=== PATIENT | female | born 1985 | race Caucasian/White ===

== ENCOUNTER → 2016-08-29 | Outpatient (CLI) | payer OTHER ==
[~2016-08-29] MED LIST: PRENTAB26 PO
[2016-08-29 17:33] LABS: URINE APPEARANCE CLEAR (CLEAR); URINE BILIRUBIN NEG (NEG); URINE COLOR DK YELLOW; URINE NITRITE NEG (NEG); URINE PH 5.5 (4.5-7.5); URINE SPECIFIC GRAVITY 1.024 (1.000-1.030); UROBILINOGEN NEG (NEG)
[2016-08-29 17:46] LABS: MANUAL MICROSCOPIC REQUIRED? NO; REVIEW REQ? NO
== END | disposition home or self-care (01) ==
LOC: C.LABSPEC 16:58
PROVIDERS: ATTEND Obstetrics & Gynecology
DX: Z34.81 Encounter for supervision of other normal pregnancy, first trimester (principal)

== ENCOUNTER → 2016-09-05 | Outpatient (CLI) | payer OTHER ==
[2016-09-05 15:40] LABS: BASO % 0.3 %; BASO ABS # 0.03 K/uL (0-0.2); COMPLETE YES; EOS % 0.6 %; HEMATOCRIT 36.3 % (37-47); IG% 0.2 %; LYMPH % 30.2 %; LYMPH ABS # 3.11 K/uL (1.2-3.4); MEAN CELL VOLUME 78.4 fL (80-100); MEAN CORPUSCULAR HEMOGLOBIN 26.1 pg (25-34); MEAN CORPUSCULAR HGB CONC 33.3 g/dl (32-36); MEAN PLATELET VOLUME 9.8 fL (7.4-10.4); MONO % 6.5 %; NEUT % 62.2 %; PLATELET COUNT 341 K/uL (130-400); RED BLOOD COUNT 4.63 M/uL (4.2-5.4); WHITE BLOOD COUNT 10.29 K/uL (4.8-10.8)
== END | disposition home or self-care (01) ==
LOC: C.LAB1850 14:36
PROVIDERS: ATTEND Obstetrics & Gynecology
DX: Z34.81 Encounter for supervision of other normal pregnancy, first trimester (principal)

== ENCOUNTER → 2016-09-05 | Outpatient (CLI) | payer OTHER ==
[2016-09-09 12:10] LABS: CHLAMYDIA TRACH RNA*** NOT DETECTED (NOT DETECTED); GC (NEIS GONORRHOEAE)RNA** NOT DETECTED (NOT DETECTED)
== END | disposition home or self-care (01) ==
LOC: C.LABSPEC 15:48
PROVIDERS: ATTEND Obstetrics & Gynecology
DX: Z34.81 Encounter for supervision of other normal pregnancy, first trimester (principal)

== ENCOUNTER → 2016-10-31 | Outpatient (CLI) | payer OTHER ==
[2016-10-31 17:11] LABS: GTGD 50 Grams
== END | disposition home or self-care (01) ==
LOC: C.LAB1850 15:29
PROVIDERS: ATTEND Obstetrics & Gynecology
DX: Z34.82 Encounter for supervision of other normal pregnancy, second trimester (principal)

== ENCOUNTER → 2017-03-20 | Outpatient (CLI) | payer OTHER | END | disposition home or self-care (01) | LOC: C.LABSPEC 17:20 | PROVIDERS: ATTEND Obstetrics & Gynecology | DX: Z34.83 Encounter for supervision of other normal pregnancy, third trimester (principal) ==

== ENCOUNTER → 2017-04-03 | Outpatient (CLI) | payer OTHER ==
[2017-04-03 13:19] LABS: HEMATOCRIT 36.6 % (37-47); HEMOGLOBIN 12.5 g/dL (12.0-16.0); MEAN CELL VOLUME 76.1 fL (80-100); MEAN CORPUSCULAR HGB CONC 34.2 g/dl (32-36); PLATELET COUNT 273 K/uL (130-400); RED CELL DISTRIBUTION WIDTH SD 41.8 fL (36.4-46.3); WHITE BLOOD COUNT 10.27 K/uL (4.8-10.8)
[2017-04-03 13:49] LABS: ALBUMIN 2.8 gm/dl (3.4-5.0); ALT/SGPT 15 U/L (12-78)
[2017-04-03 13:52] LABS: ALKALINE PHOSPHATASE 111 U/L (45-117); AST/SGOT 13 U/L (15-37); TOTAL PROTEIN 7.3 gm/dl (6.4-8.2)
== END | disposition home or self-care (01) ==
LOC: C.LAB1850 12:16
PROVIDERS: ATTEND Obstetrics & Gynecology
DX: O09.93 Supervision of high risk pregnancy, unspecified, third trimester (principal); Z3A.00 Weeks of gestation of pregnancy not specified

== ENCOUNTER 2017-04-19 06:00 | Inpatient (IN) | payer OTHER ==
[~2017-04-19] VITALS: Ht 160 cm; Wt 108.0 kg
[2017-04-19] MEDS ORDERED: LACTATED RINGER'S 1000ML 1,000 ML IV PRN (06:42)
[2017-04-19] MEDS ORDERED: FENTANYL CITRATE INJ 50 MCG/1 ML 2 ML VIAL ONE (07:13)
[2017-04-19] MEDS ORDERED: EpHEDrine SULFATE INJ 50 MG/ML AMP ONE (07:13)
[2017-04-19] MEDS ORDERED: BUPIVACAINE 0.25% 30 ML VIAL ONE (07:13)
[2017-04-19] MEDS ORDERED: FENTANYL 2MCG/ML ROPIV 1.25MG/ML 100ML BAG EPI ONE (07:14)
[2017-04-19 07:52] VITALS: Ht 160 cm; Wt 108.0 kg
[2017-04-19 07:58] LABS: HEMATOCRIT 35.9 % (37-47); HEMOGLOBIN 12.2 g/dL (12.0-16.0); MEAN CELL VOLUME 76.4 fL (80-100); MEAN PLATELET VOLUME 10.7 fL (7.4-10.4); PLATELET COUNT 204 K/uL (130-400); RED CELL DISTRIBUTION WIDTH CV 15.9 % (11.5-14.5); RED CELL DISTRIBUTION WIDTH SD 43.8 fL (36.4-46.3); WHITE BLOOD COUNT 13.27 K/uL (4.8-10.8)
[2017-04-19] MEDS: LACTATED RINGER'S 1000ML 1,000 ML IV SCH ×2 (08:05→13:10)
[2017-04-19] MEDS ORDERED: LACTATED RINGER'S 1000ML 500 ML IV PRN ×2 (08:53→09:57)
[2017-04-19] MEDS ORDERED: NALOXONE HCL INJ 1 MG in SODIUM CHLORIDE 0.9% 1000ML 1,000 ML IV PRN (08:53)
[2017-04-19] MEDS ORDERED: NALOXONE HCL INJ 0.4 MG/1 ML VIAL/CARP IV PRN (09:00)
[2017-04-19] MEDS ORDERED: EpHEDrine SULFATE INJ 50 MG/ML AMP IV PRN (09:00)
[2017-04-19] MEDS ORDERED: ONDANSETRON INJ 2 MG/ML 2 ML VIAL IV PRN (09:00)
[2017-04-19] MEDS ORDERED: NALBUPHINE HCL INJ 10 MG/ML AMP IV PRN (09:00)
[2017-04-19] MEDS ORDERED: DiphenhydrAMINE HCL 50 MG/ML VIAL IV PRN (09:00)
[2017-04-19] MEDS ORDERED: FENTANYL 2MCG/ML ROPIV 1.25MG/ML 100ML BAG EPI PRN (09:00)
[2017-04-19] MEDS ORDERED: OXYTOCIN 30 UNITS/500ML NSS IV PRN ×2 (10:00→14:45)
[2017-04-19] MEDS ORDERED: SUPERCREAM 0.870 % 15GM JAR EXT PRN (14:45)
[2017-04-19] MEDS ORDERED: ACETAMINOPHEN 325 MG TAB PO PRN (14:45)
[2017-04-19] MEDS ORDERED: LANOLIN OINT EXT PRN (14:45)
[2017-04-19] MEDS ORDERED: HYDROCORTISONE ACETATE 25 MG SUPP PR PRN (14:45)
[2017-04-19] MEDS ORDERED: IBUPROFEN 600 MG TAB PO PRN (14:45)
[2017-04-19] MEDS ORDERED: DIPHTHERIA/TETANUS/PERTUSSIS 0.5 ML SYR/VIAL IM. ONE (14:45)
[2017-04-19] MEDS ORDERED: BENZOCAINE 20% AER SPR 82.5 GM CAN EXT PRN (14:45)
[2017-04-19] MEDS ORDERED: OXYCODONE/ACETAMINOPHEN 5-325 TAB PO PRN (14:45)
--- NOTE | 2017-04-19 15:17 | Anesthesia Procedure Note ---
Anesthesia Epidural Removal Nt Date & Time Apr 19, 2017 at 15:17 Notes Mental Status: alert / awake / arousable, participated in evaluation Nausea / Vomiting: adequately controlled Pain: adequately controlled Airway Patency, RR, SpO2: stable & adequate BP & HR: stable & adequate Hydration State: stable & adequate Neuraxial Anesthesia: was administered Anesthetic Complications: no major complications apparent, pt satisfied with anesthetic care Epidural: removed without complications, with tip intact
[2017-04-19 17:10] VITALS: BP 136/75; PULSE 99; TEMP 37.2
--- NOTE | 2017-04-19 17:51 | DELIVERY SUMMARY ---
DATE OF OPERATION: 04/19/2017 PREOPERATIVE DIAGNOSES: 1. Intrauterine at 41 and 0/7 weeks. 2. Active labor. POSTOPERATIVE DIAGNOSES: Same. PROCEDURES: 1. Epidural anesthesia. 2. Amniotomy for clear fluid. 3. Pitocin augmentation. 4. Normal spontaneous vaginal delivery. 5. First degree vaginal laceration with repair. SURGEON: Becca Soria MD ANESTHESIA: Epidural. ESTIMATED BLOOD LOSS: 300 mL. PROCEDURE: The patient presented to labor and delivery in active labor at 4+ cm. She underwent an epidural anesthesia, once she was comfortable with that, her contractions had paced every 5 to 6 minutes and so amniotomy and Pitocin augmentation was begun. She progressed to complete-complete, +1 station, pushed effectively to deliver a viable male infant in direct occiput posterior presentation, and the rest of the was then quickly delivered. There was no nuchal cord. The nose and mouth were bulb suctioned. The infant was vigorous. The cord was short, so it was clamped and cut on the perineum, and the was placed on maternal abdomen for drying and attention. Cord blood was obtained. Placenta was delivered spontaneously intact with a 3-vessel cord. Cervix, sulci and rectum were examined and found to be intact. Small vaginal laceration at the introitus was repaired with 3-0 Vicryl. Apgars 9 and 9. Mother and baby doing well at the end of the delivery. I attest to the content of the Intraoperative Record and any orders documented therein. Any exception s are noted below.
[2017-04-19] MEDS: DOCUSATE SODIUM 100 MG CAP PO SCH (19:35)
[2017-04-19 20:10] VITALS: BP 143/82; PULSE 103; TEMP 36.8
[2017-04-19 23:40] VITALS: BP 119/79; PULSE 80; TEMP 36.8
[2017-04-20 04:00] VITALS: BP 141/77; PULSE 82; TEMP 36.8
[2017-04-20 06:20] LABS: HEMOGLOBIN 11.1 g/dL (12.0-16.0)
[2017-04-20] MEDS ORDERED: PRENATAL VITAMIN TAB PO SCH (08:00)
[2017-04-20] MEDS: DOCUSATE SODIUM 100 MG CAP PO SCH (08:42)
[2017-04-20 09:05] VITALS: BP 123/71; PULSE 83; TEMP 36.6
--- NOTE | 2017-04-20 09:35 | Progress Note ---
Subjective Apr 20, 2017. Subjective conversation w/ patient, physical exam, lab review Ambulation: ambulating normally Voiding: no voiding problems Diet Tolerance: Regular Diet Lochia: Small Feeding Type: Breast Feeding Pain: controlled with oral pain meds Objective Vital Signs Date Time Temp Pulse Resp B/P (MAP) Pulse Ox O2 Delivery O2 Flow Rate FiO2 04/20/17 04:00 36.8 82 18 141/77 (98) Room Air 04/19/17 23:40 Room Air 04/19/17 23:40 36.8 80 18 119/79 (92) Room Air 04/19/17 20:10 36.8 103 18 143/82 (102) Room Air 04/19/17 17:10 37.2 99 20 136/75 (95) Room Air 04/19/17 17:10 Room Air Physical Exam General Appearance: WELL-APPEARING, WD/WN, NO APPARENT DISTRESS Abdomen: non tender, soft Fundus: Firm, Non-Tender, Relation to Umbilicus (difficult to evaluate secondary to obesity) Extremities: non-tender, + pedal edema (trace) Laboratory Results Last 24 Hours Test 04/20/17 06:00 Hemoglobin 11.1 g/dL Hematocrit 33.0 % Assessment and Plan Post- Day#: 1 Continue Routine Care: Patient doing well and would like to be d/c today. Instructions reviewed.
--- NOTE | 2017-04-20 09:37 | Discharge Instructions ---
Discharge Instructions Date of Service Apr 20, 2017. Admission Reason for Admission: Normal Labor And Delivery Discharge Discharge Diagnosis / Problem: s/p vaginal delivery Discharge Goals Goal(s): Routine recovery after delivery Medications Continue Dispensed Medications: dermaplast, tucks, lansinoh Activity Recommendations Activity Limitations: per Instructions/Follow-up section . Instructions / Follow-Up Instructions / Follow-Up ACTIVITY RECOMMENDATIONS: * Gradual return to full activity over the next 2-3 weeks. * No lifting - nothing heavier than baby over the next 2-3 weeks. * Do not engage in vigorous exercise, sexual activity or sports until cleared by your physician. * Do not drive or operate any motorized equipment until cleared by your physician. * You may shower/bathe daily. MEDICATIONS: For discomfort or pain, you may use Acetaminophen (Tylenol), Ibuprofen (Advil), or Naproxen (Aleve) following the package directions. For constipation you may use Colace following the package directions. BREAST CARE: If you are not breast feeding: * Wear a supportive bra 24 hours a day for one to two weeks. * Avoid stimulating your breasts and nipples as much as possible during the first few weeks after delivery. * When taking a shower, have the warm water hit your back, not breasts. * When your breasts feel full, apply ice packs. Usually three to four times a day helps ease the discomfort. * Take a mild pain medication (Tylenol / Motrin) when you are uncomfortable. If breast feeding: * Use breast milk to lubricate nipples. Lansinoh cream may be used for sore nipples. You do not need to remove cream prior to breast feeding. If using a different brand of cream, check the label for directions regarding removal of cream prior to nursing. * Wear a supportive bra. * If having problems with breasts or breast feeding, call a data management consultant or your health care provider. EPISIOTOMY CARE: After delivery, if you have an episiotomy (stitches), the following steps will ease discomfort and aid healing. * For the first 24 hours after delivery, place ice packs next to your episiotomy to help reduce swelling. * After the first 24 hour-period, sitz baths, either portable or in the tub, are suggested. A shower with a shower arm sprayed over the episiotomy may be comforting. * Susanne care should be done after each voiding and bowel movement. Squirt warm water from a plastic bottle over the perineum (region of the body between the anus and urinary opening) and pat dry. * Use Dermoplast to ease discomfort. Shake container. [place] directly over the episiotomy. Place a Tucks on a clean sanitary pad next to your episiotomy. SPECIAL CARE INSTRUCTIONS: When you are discharged from the hospital, it is important for you to follow the instructions listed below: * During the first week at home, you should be able to care for yourself and your baby. In addition, the usual light household activities are encouraged. * Limit your activities to the way you feel. Do not try to clean the house or move furniture. Be sensible. * If you actively engage in sports and have done so up until the time of your delivery, you may resume these activities as soon as you feel able. This may take up to one month or even longer. Use good judgment. * Continue to take your vitamins for at least six weeks after the of your baby. * Your diet need not be limited unless you were on a special diet before your delivery. Breast-feeding mothers need around 2500 calories per day and at least 64-80 ounces of fluid per day (8 to 10 glasses). * You should eat foods from the four major food groups. Crash diets or fad diets are to be avoided. Eating lean meats, fresh fruits and vegetables, low-fat dairy products, high fiber foods and a regular exercise program, will help you get back to your pre- weight without putting your health at risk. * Constipation is sometimes a problem after delivery. Take a mild laxative as needed. If breast feeding, Milk of Magnesia is acceptable to use. You may use a suppository or Fleets enema if no episiotomy. * A daily shower or tub bath is suggested. Be sure to thoroughly and gently dry the perineum. * A bloody vaginal discharge will usually continue until around four weeks post . A small amount of bleeding may continue for as long as six weeks. Vaginal discharge changes from the bright red bleeding after delivery to pink then brownish and finally yellowish-pink before becoming white and disappearing. * Bleeding may increase with activity. Your first period may come in 4-8 weeks. If you are breast feeding, your period may be delayed even longer. * Nesque[place]oning (sex) can begin whenever both you and your partner feel comfortable and do not have any form of genital infection. It is recommended that you wait at least six weeks for internal and external healing to occur. If you have questions, please talk to your health care practitioner. A condom should be used to prevent infection and . * Foreplay, gentle intercourse and lubrication is very important the first several times to prevent pain. A water-based lubricant such as K-Y jelly or Astroglide may be used. * If you have RH negative blood and your baby is RH positive, you will receive RHOGAM by injection prior to discharge. The nurse will give you a card to keep with you that has the date and place that you received RHOGAM after delivery. * During your care, you had a Rubella screen done to check for the presence of rubella antibodies in your blood. If your test was negative, you will receive a Rubella vaccine prior to discharge. This vaccine may cause a fever, soreness at the injection site and flu-like symptoms. If these symptoms persist, notify your health care practitioner. is not advised for one month after a Rubella vaccine. * Verbalizes understanding of car seat law as reviewed with patient nursing. * Car Seat hand-out given and reviewed with patient by nursing. * Shaken baby information reviewed with patient by nursing. Call you doctor if: * Heavy bleeding (saturating several pads an hour) or passing clots the size of your fist. * A fever >101 degrees F (38.3 degrees C) on two occasions four hours apart and /or chills. * Unusual pain in the pelvic or vaginal areas. * "Baby Blues" lasting longer than two weeks. If you have any questions or concerns, call your health care practitioner at . FOLLOW UP VISIT: * Please call the office at to schedule a 6 week examination. It is important you keep this appointment. It is important for you to make arrangements for either yearly or twice yearly check-ups thereafter. Current Hospital Diet Patient's current hospital diet: Regular OB Diet Discharge Diet Recommended Diet: Regular Diet Pending Studies Studies pending at discharge: no Medical Emergencies . Who to Call and When: Medical Emergencies: If at any time you feel your situation is an emergency, please call 911 immediately. . Non-Emergent Contact Non-Emergency issues call your: Bag Machine Adjuster . . "Provider Documentation" section prepared by Becca Soria. . VTE Core Measure Inpt VTE Proph given/why not?: Treatment not indicated
[2017-04-20 13:10] VITALS: BP 125/76; PULSE 80; TEMP 36.6
[2017-04-20 15:25] VITALS: BP 117/74; PULSE 86; TEMP 36.7
[2017-04-20 16:15] VITALS: BP_DIAS 74; PULSE 86; TEMP 36.7
== END 2017-04-20 16:30 | disposition home or self-care (01) | DRG 775 ==
LOC: C.LD 06:00 → C.OPB 06:00 → C.LD 06:43 → C.OPB 06:47 → C.OBG 17:11
PROVIDERS: ADMIT Obstetrics & Gynecology; ATTEND Obstetrics & Gynecology
PROC: 10E0XZZ Delivery of Products of Conception, External Approach (ICD-10-PCS; principal; 2017-04-19)
PROC: 0HQ9XZZ Repair Perineum Skin, External Approach (ICD-10-PCS; principal; 2017-04-19)
DX: O70.0 First degree perineal laceration during delivery (principal); Z3A.41 41 weeks gestation of pregnancy; Z37.0 Single live birth

== ENCOUNTER → 2017-06-04 | Outpatient (CLI) | payer OTHER | END | disposition home or self-care (01) | LOC: C.PAPS 15:09 | PROVIDERS: ATTEND Obstetrics & Gynecology | DX: Z12.4 Encounter for screening for malignant neoplasm of cervix (principal) ==

== ENCOUNTER 2018-08-26 07:57 | Inpatient (IN) ==
[2018-08-26] MEDS ORDERED: OXYTOCIN 30 UNITS/500 ML BAG IV PRN ×2 (08:33)
[2018-08-26 08:58] LABS: Hematocrit (blood only) 35.1 % (37-47); Hemoglobin 11.9 g/dL (12.0-16.0); Mean Corpuscular Volume 73.4 fL (80-100); Mean Platelet Volume 10.3 fL (7.4-10.4); Platelet Count 244 K/uL (130-400); RDW Coefficient of Variation 15.4 % (11.5-14.5); RDW Standard Deviation 41.8 fL (36.4-46.3); Red Blood Count 4.78 M/uL (4.2-5.4); White Blood Count 9.84 K/uL (4.8-10.8)
[2018-08-26 09:06] LABS: Mean Corpuscular Hgb Conc 33.9 g/dL (32-36)
[2018-08-26] MEDS ORDERED: PENICILLIN G POTASSIUM 6 MU in DEXTROSE 5% 250 ML IV STA (09:15)
--- NOTE | 2018-08-26 09:26 | History & Physical Report ---
Date of Service August 26, 2018 Assessment & Plan (1) 40 weeks gestation of : Danielle is a 33yo who presents at 40+2 for scheduled induction of labor - GBS positive, Blood type O+, RI, VDRL negative - Nicholas balloon fell out at 3am. - Admit for induction of labor. - Oxytocin 2x2 induction protocol - Penicillin 6M U followed by 3MU Q4H for GBS+ protocol. - Plan for epidural. - Routine care. History of Present Illness Chief Complaint: Induction of labor Primary Care Provider: DEMETRIA PCP Danielle is a 33-year-old 3 para 2-0-0-2 who presents at 40+2 weeks gestation for scheduled induction of labor. She is group B strep positive. Blood type O+, rubella immune, VDRL negative. Her prior pregnancies were delivered by normal spontaneous vaginal delivery at 41+ weeks. Her current has been uncomplicated. She has no past medical history of diabetes, hypertension, heart disease, autoimmune disorder, kidney disease, psychiatric disease, hepatic disease. No history of migraines or asthma. She takes a vitamin and Tums. No other medications. She has no known drug allergies Social: Non-smoker, no alcohol use. Lives with spouse, son, and daughter. Today Danielle reports she feels well. She is not having any fever, chills, shortness of breath, difficulty breathing, chest pain, chest pressure, lightheadedness, dizziness, abdominal pain. She reports a small amount of blood in vaginal discharge after her Nicholas balloon fell out last night at approximately 1 AM. Otherwise no vaginal discharge. She has not had a gush of fluid, and is not concerned her water has broken. She is having occasional sporadic contractions, but no regular contractions. No nausea, no vomiting. She would like an epidural with this delivery. No other questions or concerns at this time. Allergies Allergy/AdvReac Type Severity Reaction Status Date / Time No Known Drug Allergies Allergy Unknown NONE Verified 04/19/17 07:46 Home Medications Home Medications Medication Instructions Recorded Confirmed Type PNV cmb#95-ferrous fumarate-FA 1 tab PO DAILY 08/26/18 08/26/18 History [] Patient History Medical History (spontaneous vaginal delivery) - Family History Grandfather (Maternal) Diabetes Social History Preferred Language: Romansh Communication Ability: Effective Customer Management Specialist Required: No Beliefs That Will Affect Care: None marital status: Current Living Situation: Spouse and Family Other Information That Helps Us Care for You: No Feels Safe at Home: Yes Safety Concerns: Feels Safe At This Time Smoking Status: Former smoker Second Hand Exposure: No Hx Alcohol Use: No Hx Substance Use: No Review of Systems no fever, no chills, no body aches, no fatigue and no weakness no blind spots, no corrective lenses, no eye pain and no worsening vision no ear discharge, no dizziness, no nasal congestion, no sore throat and no problem reported no cough, no chest congestion, no change in sputum, no dyspnea, no dyspnea on exertion, no sputum production and no wheezing no chest pain, no chest pain at rest, no chest pain with activity, no dyspnea, no dyspnea at rest, no dyspnea on exertion, no orthopnea, no palpitations, no syncope, no edema and no calf pain no abdominal pain, no nausea, no vomiting and no constipation no dysuria and no difficulty urinating no back pain, no neck pain, no joint pain, no myalgia, no muscle weakness and no body aches no rash, no lesions, no new lesions and no changing lesions no unsteadiness, no falls, no localized weakness, no generalized weakness, no paralysis, no loss of sensation, no tingling, no numbness and no paresthesia no depression, no anxiety and no confusion Physical Exam Physical Exam: General: A&Ox3. NAD. Cooperative. HEENT: Atraumatic, normocephalic. Pulm: CTAB A&P. -wheezes, -rales, -rhonchi. Symmetrical chest rise. No increased work of breathing. No respiratory distress. Cardiac: RRR, -mrg. Radial pulses intact and symmetrical. Abdominal: Distension consistent with 40 weeks gestation of . No abdominal pain. No URQ pain. Extremity: Mild leg swelling bilaterally without pitting edema. No calf tenderness, no erythema/warmth/asymmetry. Homans negative. Neuro: EoM intact, PERLAA, sensation intact in distal extremities, no facial asymmetry, no dysarthria. Visual acuity grossly intact. Results & Data Vital Signs (Past 12 Hours) Vital Signs Temp Pulse Resp BP 08/26/18 08:39 76 127/60 08/26/18 08:23 71 143/80 H 08/26/18 08:13 36.8 C 90 20 169/104 H 08/26/18 08:07 36.8 C 90 20 169/104 H Monitoring External Monitor Category I tracing. FHR ~120-130bmp. Moderate variability. No decels. Tocodynamometer No regular contractions. Supervising Physician Co-Signing Physician Notes Patient seen and evaluated and agree with the above findings and plan Resident Activity Tracking Resident Involvement: Resident Care Provided Care Provided: Adult Hospital Medicine
[2018-08-26] MEDS: LACTATED RINGER'S 1,000 ML IV PRN ×3 (09:54→19:00)
[2018-08-26] MEDS ORDERED: BUPIVACAINE 0.25% 30 ML VIAL ONE (12:33)
[2018-08-26] MEDS ORDERED: ePHEDrine sulfate 50 MG/ML AMP ONE (12:33)
[2018-08-26] MEDS ORDERED: fentaNYL citrate 100 MCG/2 ML VIAL ONE (12:34)
[2018-08-26] MEDS ORDERED: fentaNYL 2MCG/ML ROPIV 1.25MG/ML 100 ML BAG EPI ONE (12:34)
--- NOTE | 2018-08-26 12:43 | Anesthesiology Consultation ---
Date of Service August 26, 2018 Assessment & Plan Chart Review Chart Review: Patient NOT seen in Pre Admission Testing and Acceptable Risk for Labor Epidural Consults Requested none ASA ASA2 Proposed Anesthesia Anesthesia Type: Labor Epidural Risk / Benefits Reviewed With: PT / POA / Parent / Guardian, Accepts Plan and Informed Consent Obtained History Height/Weight Height: 1.6 m Weight: 105.687 kg Allergies Allergy/AdvReac Type Severity Reaction Status Date / Time No Known Drug Allergies Allergy Unknown NONE Verified 04/19/17 07:46 Medications Home Medications Medication Instructions Recorded Confirmed Last Taken PNV cmb#95-ferrous fumarate-FA 1 tab PO DAILY 08/26/18 08/26/18 08/25/18 09:00 [] Active Medications Generic Name Dose Route Start Last Admin Trade Name Freq PRN Reason Stop Dose Admin Lactated Ringer's 1,000 mls @ 125 mls/hr 08/26/18 09:15 08/26/18 12:30 Lr IV 08/28/18 09:14 999 mls/hr .Q8H PRN Infusion L&D Protocol Protocol Oxytocin 30 units in 500 mls @ 10 mls/hr 08/26/18 08:33 08/26/18 12:00 Pitocin IV 08/28/18 08:32 0.6 units/hr .Q24H PRN 10 mls/hr Labor Induction/Augmentation Titration Protocol 0.6 UNITS/HR NPO Date Last Intake of Fluids: 08/26/18 Time Last Intake of Fluids: 12:30 Date Last Intake of Solids: 08/26/18 Time Last Intake of Solids: 06:15 Past Medical History Medical History (spontaneous vaginal delivery) -2014,2017 Exercise / Class Metabolic Activity II 4-5 Yardwork/Stairs/Walk up hill Past Family History Family History Grandfather (Maternal) Diabetes Past Anesthesia History No Family Hx of Anesthesia Complications No previous anesthesia history History of PONV No Hx of Motion Sickness and Other (No previous anesthesia history) Social History Smoking Status: Former smoker Do You Dip or Chew Tobacco: No Hx Alcohol Use: No Hx Substance Use: No Physical Exam Vital Signs Last Vital Signs Temp 36.8 C 08/26/18 08:13 Pulse 71 08/26/18 12:39 Resp 20 08/26/18 11:36 BP 167/81 H 08/26/18 12:37 Pulse Ox 100 08/26/18 12:39 ENMT Mouth: no TMJ abnormality and no TMJ clicking Thyromental Distance: > or= 3.5 Finger Breadths Mallampati Class: II Neck normal visual inspection; neck extension not limited Respiratory Auscultation: lungs clear to auscultation bilaterally Cardiovascular Rate/Rhythm: regular rate and regular rhythm Psychiatric Orientation: alert and oriented x 3 Testing Laboratory Results Laboratory Tests 08/26/18 08:46 WBC 9.84 Hgb 11.9 L Hct 35.1 L Plt Count 244
[2018-08-26] MEDS ORDERED: DiphenhydrAMINE HCL 50 MG/ML VIAL IV PRN (13:10)
[2018-08-26] MEDS ORDERED: ePHEDrine sulfate 50 MG/ML AMP IV PRN (13:10)
[2018-08-26] MEDS ORDERED: fentaNYL 2MCG/ML ROPIV 1.25MG/ML 100 ML BAG EPI PRN (13:10)
[2018-08-26] MEDS ORDERED: PROMETHAZINE HCL 12.5 MG in SODIUM CHLORIDE 0.9% 50 ML IV PRN (13:10)
[2018-08-26] MEDS ORDERED: NALBUPHINE HCL INJ 10 MG/ML AMP IV PRN (13:10)
[2018-08-26] MEDS ORDERED: ONDANSETRON INJ 2 MG/ML 2 ML VIAL IV PRN (13:10)
[2018-08-26] MEDS ORDERED: NALOXONE HCL 0.4 MG/1 ML VIAL/CARP IV PRN (13:10)
[2018-08-26] MEDS ORDERED: NALOXONE HCL 1 MG in SODIUM CHLORIDE 0.9% 1000ML 1,000 ML IV PRN (13:10)
[2018-08-26] MEDS: PENICILLIN G POTASSIUM 3 MU in DEXTROSE 5% 100 ML IV PRN ×3 (14:26→22:50)
--- NOTE | 2018-08-26 20:43 | Obstetrical Progress Note ---
Date of Service August 26, 2018 Assessment & Plan (1) 40 weeks gestation of : Cat 1 tracing Progressing. AROM clr Epidural placed GBS +: PCN Subjective Doing well Physical Exam Genitourinary: OB Exam Abdomen: + vertex Manual OB Exam: + cervical dilation 4 cm, + cervical effacement 50%, + station high and + amniotic fluid clear OB Exam Monitor Tracing: + scalp electrode used, + intra-uterine pressure catheter used and + category I Results & Data Vital Signs (Past 12 Hours) Vital Signs Temp Pulse Resp BP Pulse Ox 08/26/18 20:39 75 115/56 L 100 08/26/18 20:34 72 99 08/26/18 20:29 63 98 08/26/18 20:24 66 124/58 L 99 08/26/18 20:19 73 99 08/26/18 20:14 89 100 08/26/18 20:09 82 116/63 99 08/26/18 20:04 71 99 08/26/18 19:59 87 99 08/26/18 19:56 64 107/57 L 08/26/18 19:54 80 99 08/26/18 19:49 82 99 08/26/18 19:45 36.9 C 90 18 163/87 H 08/26/18 19:44 70 100 08/26/18 19:39 77 115/55 L 100 08/26/18 19:34 92 H 100 08/26/18 19:29 67 100 08/26/18 19:24 92 H 119/62 100 08/26/18 19:19 65 100 08/26/18 19:14 85 99 08/26/18 19:09 67 118/56 L 100 08/26/18 19:04 70 100 08/26/18 18:59 63 100 08/26/18 18:54 71 120/56 L 100 08/26/18 18:49 68 100 08/26/18 18:44 64 100 08/26/18 18:39 73 129/57 L 100 08/26/18 18:34 70 100 08/26/18 18:29 72 100 08/26/18 18:25 69 130/62 08/26/18 18:24 80 100 08/26/18 18:21 72 91 08/26/18 18:19 67 100 08/26/18 18:14 75 100 08/26/18 18:09 71 127/70 100 08/26/18 18:04 63 99 08/26/18 18:00 37.0 C 18 08/26/18 17:59 67 100 08/26/18 17:54 61 128/61 99 08/26/18 17:49 68 99 08/26/18 17:44 60 99 08/26/18 17:39 62 127/60 100 08/26/18 17:34 61 99 08/26/18 17:29 73 100 08/26/18 17:24 60 100 08/26/18 17:19 62 100 08/26/18 17:14 67 100 08/26/18 17:09 65 130/64 100 08/26/18 17:04 79 100 08/26/18 16:59 64 100 08/26/18 16:54 60 126/58 L 100 08/26/18 16:49 62 100 08/26/18 16:44 62 100 08/26/18 16:39 64 117/55 L 100 08/26/18 16:34 69 100 08/26/18 16:33 75 92 08/26/18 16:29 65 100 08/26/18 16:24 63 135/71 100 08/26/18 16:19 63 99 08/26/18 16:14 60 98 08/26/18 16:09 60 120/66 100 08/26/18 16:04 58 L 100 08/26/18 15:59 70 100 08/26/18 15:55 65 124/67 08/26/18 15:54 67 100 08/26/18 15:49 71 99 08/26/18 15:44 59 L 100 08/26/18 15:39 59 L 114/55 L 100 08/26/18 15:34 59 L 99 08/26/18 15:29 59 L 99 08/26/18 15:24 57 L 100 08/26/18 15:19 56 L 100 08/26/18 15:14 61 99 08/26/18 15:09 36.3 C L 62 18 116/57 L 100 08/26/18 15:04 67 100 08/26/18 14:59 56 L 99 08/26/18 14:54 56 L 114/59 L 100 08/26/18 14:49 61 100 08/26/18 14:44 66 100 06/05/19 14:39 58 L 111/55 L 99 08/26/18 14:34 58 L 100 08/26/18 14:29 58 L 99 08/26/18 14:24 59 L 117/56 L 100 08/26/18 14:19 61 100 08/26/18 14:14 63 100 08/26/18 14:09 71 100 08/26/18 14:04 61 100 08/26/18 13:59 60 99 08/26/18 13:54 66 100 08/26/18 13:53 59 L 118/59 L 08/26/18 13:51 58 L 121/61 08/26/18 13:49 57 L 120/61 100 08/26/18 13:47 59 L 120/60 08/26/18 13:45 58 L 121/62 08/26/18 13:44 61 98 08/26/18 13:43 59 L 121/60 08/26/18 13:42 18 08/26/18 13:41 60 120/57 L 08/26/18 13:39 59 L 120/56 L 100 08/26/18 13:37 61 121/58 L 08/26/18 13:35 61 125/65 08/26/18 13:34 61 100 08/26/18 13:33 82 120/68 08/26/18 13:31 61 121/60 08/26/18 13:30 16 08/26/18 13:29 68 125/62 100 08/26/18 13:27 60 125/63 08/26/18 13:25 63 122/65 08/26/18 13:24 64 100 08/26/18 13:23 64 126/66 08/26/18 13:21 62 129/65 08/26/18 13:19 66 125/61 100 08/26/18 13:17 73 122/60 08/26/18 13:15 69 124/57 L 08/26/18 13:14 65 100 08/26/18 13:13 65 123/59 L 08/26/18 13:11 65 118/58 L 08/26/18 13:09 75 16 120/59 L 100 08/26/18 13:06 77 137/56 L 08/26/18 13:04 71 121/59 L 100 08/26/18 12:59 79 100 08/26/18 12:54 82 100 08/26/18 12:49 86 100 08/26/18 12:44 75 100 08/26/18 12:39 71 100 08/26/18 12:37 74 20 167/81 H 08/26/18 12:06 62 133/69 08/26/18 11:36 67 20 136/75 08/26/18 11:12 71 20 138/86 08/26/18 10:36 64 18 128/64 08/26/18 10:02 67 20 141/71 H 08/26/18 09:58 72 179/93 H
--- NOTE | 2018-08-26 20:48 | Obstetrical Progress Note ---
Date of Service August 26, 2018 Assessment & Plan (1) 40 weeks gestation of : Cat 2 tracing - Variable decels Progressing. AROM clr. Fetus still noted at high station Epidural placed GBS +: PCN Subjective Doing well. Oxytocin d/stuart for variable decels. Physical Exam Genitourinary: Manual OB Exam: + cervical dilation 5 cm, + cervical effacement 60%, + station high and + amniotic fluid clear OB Exam Monitor Tracing: + scalp electrode used, + external uterine monitor used, + category II, + normal FHT variability and + variable decelerations Results & Data Vital Signs (Past 12 Hours) Vital Signs Temp Pulse Resp BP Pulse Ox 08/26/18 20:39 75 115/56 L 100 08/26/18 20:34 72 99 08/26/18 20:29 63 98 08/26/18 20:24 66 124/58 L 99 08/26/18 20:19 73 99 08/26/18 20:14 89 100 08/26/18 20:09 82 116/63 99 08/26/18 20:04 71 99 08/26/18 19:59 87 99 08/26/18 19:56 64 107/57 L 08/26/18 19:54 80 99 08/26/18 19:49 82 99 08/26/18 19:45 36.9 C 90 18 163/87 H 08/26/18 19:44 70 100 08/26/18 19:39 77 115/55 L 100 08/26/18 19:34 92 H 100 08/26/18 19:29 67 100 08/26/18 19:24 92 H 119/62 100 08/26/18 19:19 65 100 08/26/18 19:14 85 99 08/26/18 19:09 67 118/56 L 100 08/26/18 19:04 70 100 08/26/18 18:59 63 100 08/26/18 18:54 71 120/56 L 100 08/26/18 18:49 68 100 08/26/18 18:44 64 100 08/26/18 18:39 73 129/57 L 100 08/26/18 18:34 70 100 08/26/18 18:29 72 100 08/26/18 18:25 69 130/62 08/26/18 18:24 80 100 06/05/19 18:21 72 91 08/26/18 18:19 67 100 08/26/18 18:14 75 100 08/26/18 18:09 71 127/70 100 08/26/18 18:04 63 99 08/26/18 18:00 37.0 C 18 08/26/18 17:59 67 100 08/26/18 17:54 61 128/61 99 08/26/18 17:49 68 99 08/26/18 17:44 60 99 08/26/18 17:39 62 127/60 100 08/26/18 17:34 61 99 08/26/18 17:29 73 100 08/26/18 17:24 60 100 08/26/18 17:19 62 100 08/26/18 17:14 67 100 08/26/18 17:09 65 130/64 100 08/26/18 17:04 79 100 08/26/18 16:59 64 100 08/26/18 16:54 60 126/58 L 100 08/26/18 16:49 62 100 08/26/18 16:44 62 100 08/26/18 16:39 64 117/55 L 100 08/26/18 16:34 69 100 08/26/18 16:33 75 92 08/26/18 16:29 65 100 08/26/18 16:24 63 135/71 100 08/26/18 16:19 63 99 08/26/18 16:14 60 98 08/26/18 16:09 60 120/66 100 08/26/18 16:04 58 L 100 08/26/18 15:59 70 100 08/26/18 15:55 65 124/67 08/26/18 15:54 67 100 08/26/18 15:49 71 99 08/26/18 15:44 59 L 100 08/26/18 15:39 59 L 114/55 L 100 08/26/18 15:34 59 L 99 08/26/18 15:29 59 L 99 08/26/18 15:24 57 L 100 08/26/18 15:19 56 L 100 08/26/18 15:14 61 99 08/26/18 15:09 36.3 C L 62 18 116/57 L 100 08/26/18 15:04 67 100 08/26/18 14:59 56 L 99 08/26/18 14:54 56 L 114/59 L 100 08/26/18 14:49 61 100 08/26/18 14:44 66 100 08/26/18 14:39 58 L 111/55 L 99 08/26/18 14:34 58 L 100 08/26/18 14:29 58 L 99 08/26/18 14:24 59 L 117/56 L 100 08/26/18 14:19 61 100 08/26/18 14:14 63 100 08/26/18 14:09 71 100 08/26/18 14:04 61 100 08/26/18 13:59 60 99 08/26/18 13:54 66 100 08/26/18 13:53 59 L 118/59 L 08/26/18 13:51 58 L 121/61 08/26/18 13:49 57 L 120/61 100 08/26/18 13:47 59 L 120/60 08/26/18 13:45 58 L 121/62 08/26/18 13:44 61 98 08/26/18 13:43 59 L 121/60 08/26/18 13:42 18 08/26/18 13:41 60 120/57 L 08/26/18 13:39 59 L 120/56 L 100 08/26/18 13:37 61 121/58 L 08/26/18 13:35 61 125/65 08/26/18 13:34 61 100 08/26/18 13:33 82 120/68 08/26/18 13:31 61 121/60 08/26/18 13:30 16 08/26/18 13:29 68 125/62 100 08/26/18 13:27 60 125/63 08/26/18 13:25 63 122/65 08/26/18 13:24 64 100 08/26/18 13:23 64 126/66 08/26/18 13:21 62 129/65 08/26/18 13:19 66 125/61 100 08/26/18 13:17 73 122/60 08/26/18 13:15 69 124/57 L 08/26/18 13:14 65 100 08/26/18 13:13 65 123/59 L 08/26/18 13:11 65 118/58 L 08/26/18 13:09 75 16 120/59 L 100 08/26/18 13:06 77 137/56 L 08/26/18 13:04 71 121/59 L 100 08/26/18 12:59 79 100 08/26/18 12:54 82 100 08/26/18 12:49 86 100 08/26/18 12:44 75 100 08/26/18 12:39 71 100 08/26/18 12:37 74 20 167/81 H 08/26/18 12:06 62 133/69 08/26/18 11:36 67 20 136/75 08/26/18 11:12 71 20 138/86 08/26/18 10:36 64 18 128/64 08/26/18 10:02 67 20 141/71 H 08/26/18 09:58 72 179/93 H
--- NOTE | 2018-08-26 20:49 | Obstetrical Progress Note ---
Date of Service August 26, 2018 Assessment & Plan (1) 40 weeks gestation of : Cat 2 tracing - Variable decels Progressing. AROM clr. Fetus still noted at high station Epidural placed GBS +: PCN Subjective Doing well. Pitocin restarted and D/stuart for variable decels. Physical Exam Genitourinary: Manual OB Exam: + cervical dilation 6 cm, + cervical effacement 60%, + station -2 and + amniotic fluid clear OB Exam Monitor Tracing: + scalp electrode used, + external uterine monitor used, + category II and + variable decelerations Results & Data Vital Signs (Past 12 Hours) Vital Signs Temp Pulse Resp BP Pulse Ox 08/26/18 20:44 77 100 08/26/18 20:39 75 115/56 L 100 08/26/18 20:34 72 99 08/26/18 20:29 63 98 08/26/18 20:24 66 124/58 L 99 08/26/18 20:19 73 99 08/26/18 20:14 89 100 08/26/18 20:09 82 116/63 99 08/26/18 20:04 71 99 08/26/18 19:59 87 99 08/26/18 19:56 64 107/57 L 08/26/18 19:54 80 99 08/26/18 19:49 82 99 08/26/18 19:45 36.9 C 90 18 163/87 H 08/26/18 19:44 70 100 08/26/18 19:39 77 115/55 L 100 08/26/18 19:34 92 H 100 08/26/18 19:29 67 100 08/26/18 19:24 92 H 119/62 100 08/26/18 19:19 65 100 08/26/18 19:14 85 99 08/26/18 19:09 67 118/56 L 100 08/26/18 19:04 70 100 08/26/18 18:59 63 100 08/26/18 18:54 71 120/56 L 100 08/26/18 18:49 68 100 08/26/18 18:44 64 100 08/26/18 18:39 73 129/57 L 100 08/26/18 18:34 70 100 08/26/18 18:29 72 100 08/26/18 18:25 69 130/62 06/05/19 18:24 80 100 08/26/18 18:21 72 91 08/26/18 18:19 67 100 08/26/18 18:14 75 100 08/26/18 18:09 71 127/70 100 08/26/18 18:04 63 99 08/26/18 18:00 37.0 C 18 08/26/18 17:59 67 100 08/26/18 17:54 61 128/61 99 08/26/18 17:49 68 99 08/26/18 17:44 60 99 08/26/18 17:39 62 127/60 100 08/26/18 17:34 61 99 08/26/18 17:29 73 100 08/26/18 17:24 60 100 08/26/18 17:19 62 100 08/26/18 17:14 67 100 08/26/18 17:09 65 130/64 100 08/26/18 17:04 79 100 08/26/18 16:59 64 100 08/26/18 16:54 60 126/58 L 100 08/26/18 16:49 62 100 08/26/18 16:44 62 100 08/26/18 16:39 64 117/55 L 100 08/26/18 16:34 69 100 08/26/18 16:33 75 92 08/26/18 16:29 65 100 08/26/18 16:24 63 135/71 100 08/26/18 16:19 63 99 08/26/18 16:14 60 98 08/26/18 16:09 60 120/66 100 08/26/18 16:04 58 L 100 08/26/18 15:59 70 100 08/26/18 15:55 65 124/67 08/26/18 15:54 67 100 08/26/18 15:49 71 99 08/26/18 15:44 59 L 100 08/26/18 15:39 59 L 114/55 L 100 08/26/18 15:34 59 L 99 08/26/18 15:29 59 L 99 08/26/18 15:24 57 L 100 08/26/18 15:19 56 L 100 08/26/18 15:14 61 99 08/26/18 15:09 36.3 C L 62 18 116/57 L 100 08/26/18 15:04 67 100 08/26/18 14:59 56 L 99 06/05/19 14:54 56 L 114/59 L 100 08/26/18 14:49 61 100 08/26/18 14:44 66 100 08/26/18 14:39 58 L 111/55 L 99 08/26/18 14:34 58 L 100 08/26/18 14:29 58 L 99 08/26/18 14:24 59 L 117/56 L 100 08/26/18 14:19 61 100 08/26/18 14:14 63 100 08/26/18 14:09 71 100 08/26/18 14:04 61 100 08/26/18 13:59 60 99 08/26/18 13:54 66 100 08/26/18 13:53 59 L 118/59 L 08/26/18 13:51 58 L 121/61 08/26/18 13:49 57 L 120/61 100 08/26/18 13:47 59 L 120/60 08/26/18 13:45 58 L 121/62 08/26/18 13:44 61 98 08/26/18 13:43 59 L 121/60 08/26/18 13:42 18 08/26/18 13:41 60 120/57 L 08/26/18 13:39 59 L 120/56 L 100 08/26/18 13:37 61 121/58 L 08/26/18 13:35 61 125/65 08/26/18 13:34 61 100 08/26/18 13:33 82 120/68 08/26/18 13:31 61 121/60 08/26/18 13:30 16 08/26/18 13:29 68 125/62 100 08/26/18 13:27 60 125/63 08/26/18 13:25 63 122/65 08/26/18 13:24 64 100 08/26/18 13:23 64 126/66 08/26/18 13:21 62 129/65 08/26/18 13:19 66 125/61 100 08/26/18 13:17 73 122/60 08/26/18 13:15 69 124/57 L 08/26/18 13:14 65 100 08/26/18 13:13 65 123/59 L 08/26/18 13:11 65 118/58 L 06/05/19 13:09 75 16 120/59 L 100 08/26/18 13:06 77 137/56 L 08/26/18 13:04 71 121/59 L 100 08/26/18 12:59 79 100 08/26/18 12:54 82 100 08/26/18 12:49 86 100 08/26/18 12:44 75 100 08/26/18 12:39 71 100 08/26/18 12:37 74 20 167/81 H 08/26/18 12:06 62 133/69 08/26/18 11:36 67 20 136/75 08/26/18 11:12 71 20 138/86 08/26/18 10:36 64 18 128/64 08/26/18 10:02 67 20 141/71 H 08/26/18 09:58 72 179/93 H
[2018-08-27] MEDS ORDERED: CEFAZOLIN 3000MG 72.5 ML IV ONE (01:52)
[2018-08-27] MEDS ORDERED: CITRIC ACID/SODIUM CITRATE 15 ML UDC PO ONE (02:00)
[2018-08-27] MEDS ORDERED: AZITHROMYCIN 500 MG in DEXTROSE 5% 250 ML IV ONE (02:00)
[2018-08-27] MEDS ORDERED: LIDOCAINE/EPINEPHRINE 2% 1:200,000 20 ML SDV ONE (02:04)
--- NOTE | 2018-08-27 02:04 | Obstetrical Progress Note ---
Date of Service August 27, 2018 Assessment & Plan (1) 40 weeks gestation of : Cat 2 tracing - Variable, late and prolonged decels with d/c of oxytocin x3 No progression since last exam. Fetus still noted at high station without decent of station. Will proceed with LTCS for failure progress and intolerance of labor with inability to augment. Consents signed and risks discussed Epidural placed GBS +: PCN Subjective Variable, late and prolonged decels requiring D/c of oxytocin x3. Decels now persisting without contraction and pitocin d/stuart > 1hr. Discussed primary LTCS with patient including risks. Doing well. Oxytocin d/stuart for variable decels. Physical Exam Genitourinary: Manual OB Exam: + cervical dilation 7 cm, + cervical effacement 60% and + station -2 OB Exam Monitor Tracing: + scalp electrode used and + category II Results & Data Vital Signs (Past 12 Hours) Vital Signs Temp Pulse Resp BP Pulse Ox 08/27/18 01:49 76 100 08/27/18 01:44 80 100 08/27/18 01:40 61 112/59 L 08/27/18 01:39 64 100 08/27/18 01:34 68 100 08/27/18 01:29 67 100 08/27/18 01:24 79 98 08/27/18 01:19 68 98 08/27/18 01:14 60 97 08/27/18 01:09 67 97 08/27/18 01:04 62 97 08/27/18 00:59 71 97 08/27/18 00:54 68 97 08/27/18 00:49 67 97 08/27/18 00:44 67 97 08/27/18 00:41 67 124/64 08/27/18 00:39 67 97 08/27/18 00:34 71 98 08/27/18 00:29 72 97 08/27/18 00:24 73 98 08/27/18 00:19 82 98 08/27/18 00:14 75 99 08/27/18 00:09 75 98 08/27/18 00:05 36.8 C 18 08/27/18 00:04 75 98 08/26/18 23:59 77 99 08/26/18 23:54 80 98 08/26/18 23:49 83 97 08/26/18 23:44 81 98 08/26/18 23:39 83 119/58 L 98 08/26/18 23:34 81 98 08/26/18 23:29 73 97 08/26/18 23:24 71 122/57 L 97 08/26/18 23:19 69 97 08/26/18 23:14 67 97 08/26/18 23:09 71 125/60 98 08/26/18 23:04 78 98 08/26/18 23:03 36.8 C 16 08/26/18 22:59 71 98 08/26/18 22:55 67 126/60 08/26/18 22:54 65 100 08/26/18 22:49 71 100 08/26/18 22:44 85 97 08/26/18 22:39 76 126/60 100 08/26/18 22:34 70 100 08/26/18 22:29 67 100 08/26/18 22:24 69 118/55 L 100 08/26/18 22:19 66 100 08/26/18 22:14 68 100 08/26/18 22:09 105 H 120/62 96 08/26/18 22:04 86 99 08/26/18 21:59 77 98 08/26/18 21:54 88 131/66 99 08/26/18 21:49 70 98 08/26/18 21:44 77 97 08/26/18 21:39 74 130/65 98 08/26/18 21:34 79 99 08/26/18 21:29 76 99 08/26/18 21:24 76 135/72 99 08/26/18 21:19 69 99 08/26/18 21:14 83 100 08/26/18 21:10 36.8 C 08/26/18 21:09 78 132/67 100 08/26/18 21:08 97 H 92 08/26/18 21:04 81 100 08/26/18 20:59 74 100 05 20:55 75 126/62 08/26/18 20:54 77 100 05 20:52 83 92 08/26/18 20:49 73 100 05 20:44 77 100 0605 20:39 75 115/56 L 100 08/26/18 20:35 36.8 C 08/26/18 20:34 72 99 08/26/18 20:29 63 98 08/26/18 20:24 66 124/58 L 99 08/26/18 20:19 73 99 05 20:14 89 100 08/26/18 20:09 82 116/63 99 08/26/18 20:04 71 99 08/26/18 19:59 87 99 08/26/18 19:56 64 107/57 L 08/26/18 19:54 80 99 08/26/18 19:49 82 99 08/26/18 19:45 36.9 C 90 18 163/87 H 08/26/18 19:44 70 100 08/26/18 19:39 77 115/55 L 100 08/26/18 19:34 92 H 100 08/26/18 19:29 67 100 08/26/18 19:24 92 H 119/62 100 08/26/18 19:19 65 100 08/26/18 19:14 85 99 08/26/18 19:09 67 118/56 L 100 08/26/18 19:04 70 100 08/26/18 18:59 63 100 08/26/18 18:54 71 120/56 L 100 08/26/18 18:49 68 100 08/26/18 18:44 64 100 08/26/18 18:39 73 129/57 L 100 08/26/18 18:34 70 100 08/26/18 18:29 72 100 08/26/18 18:25 69 130/62 08/26/18 18:24 80 100 08/26/18 18:21 72 91 08/26/18 18:19 67 100 08/26/18 18:14 75 100 05 18:09 71 127/70 100 08/26/18 18:04 63 99 08/26/18 18:00 37.0 C 18 08/26/18 17:59 67 100 05 17:54 61 128/61 99 08/26/18 17:49 68 99 08/26/18 17:44 60 99 08/26/18 17:39 62 127/60 100 08/26/18 17:34 61 99 05 17:29 73 100 08/26/18 17:24 60 100 05 17:19 62 100 08/26/18 17:14 67 100 08/26/18 17:09 65 130/64 100 08/26/18 17:04 79 100 08/26/18 16:59 64 100 08/26/18 16:54 60 126/58 L 100 08/26/18 16:49 62 100 08/26/18 16:44 62 100 08/26/18 16:39 64 117/55 L 100 08/26/18 16:34 69 100 08/26/18 16:33 75 92 08/26/18 16:29 65 100 08/26/18 16:24 63 135/71 100 08/26/18 16:19 63 99 08/26/18 16:14 60 98 08/26/18 16:09 60 120/66 100 08/26/18 16:04 58 L 100 08/26/18 15:59 70 100 08/26/18 15:55 65 124/67 08/26/18 15:54 67 100 08/26/18 15:49 71 99 08/26/18 15:44 59 L 100 08/26/18 15:39 59 L 114/55 L 100 08/26/18 15:34 59 L 99 08/26/18 15:29 59 L 99 08/26/18 15:24 57 L 100 08/26/18 15:19 56 L 100 08/26/18 15:14 61 99 08/26/18 15:09 36.3 C L 62 18 116/57 L 100 08/26/18 15:04 67 100 08/26/18 14:59 56 L 99 08/26/18 14:54 56 L 114/59 L 100 08/26/18 14:49 61 100 08/26/18 14:44 66 100 08/26/18 14:39 58 L 111/55 L 99 08/26/18 14:34 58 L 100 08/26/18 14:29 58 L 99 08/26/18 14:24 59 L 117/56 L 100 08/26/18 14:19 61 100 08/26/18 14:14 63 100 08/26/18 14:09 71 100 08/26/18 14:04 61 100 08/26/18 13:59 60 99
[2018-08-27] MEDS ORDERED: OXYTOCIN 10 UNITS/ML VIAL ONE ×3 (02:05)
[2018-08-27] MEDS ORDERED: fentaNYL citrate 100 MCG/2 ML VIAL ONE (02:05)
[2018-08-27] MEDS ORDERED: fentaNYL citrate 100 MCG/2 ML VIAL IV PRN (02:10)
[2018-08-27] MEDS ORDERED: ePHEDrine sulfate 50 MG/ML AMP IV PRN ×2 (02:10→03:20)
[2018-08-27] MEDS ORDERED: PHENYLEPHRINE 100MCG/ML 5ML SYR IV PRN (02:10)
[2018-08-27] MEDS ORDERED: ONDANSETRON INJ 2 MG/ML 2 ML VIAL IV PRN ×2 (02:10→21:20)
[2018-08-27] MEDS ORDERED: ATROPINE SULFATE 0.1 MG/ML 10ML SYR IV PRN (02:10)
[2018-08-27] MEDS ORDERED: PROMETHAZINE HCL 12.5 MG in SODIUM CHLORIDE 0.9% 50 ML IV PRN ×2 (02:10→03:20)
--- NOTE | 2018-08-27 02:12 | Anesthesiology Consultation ---
Date of Service August 27, 2018 Assessment & Plan Chart Review Chart Review: Acceptable Risk for Surgery and Patient NOT seen in Pre Admission Testing Consults Requested none ASA [id number] Proposed Anesthesia Anesthesia Type: MAC Epidural Risk / Benefits Reviewed With: PT / POA / Parent / Guardian, Accepts Plan and Informed Consent Obtained History Surgery Operation Date: 08/27/18 03:00 Proposed Procedures p Section in LD(Bilateral) - Juanito Campbell MD Height/Weight Height: 1.6 m Weight: 105.687 kg Allergies Allergy/AdvReac Type Severity Reaction Status Date / Time No Known Drug Allergies Allergy Unknown NONE Verified 04/19/17 07:46 Medications Home Medications Medication Instructions Recorded Confirmed Last Taken PNV [id number]-ferrous fumarate-FA 1 tab PO DAILY 08/26/18 08/26/18 08/25/18 09:00 [] Active Medications Generic Name Dose Route Start Last Admin Trade Name Freq PRN Reason Stop Dose Admin Lactated Ringer's 1,000 mls @ 125 mls/hr 08/26/18 09:15 08/26/18 19:55 Lr IV 08/28/18 09:14 125 mls/hr .Q8H PRN Infusion L&D Protocol Protocol Oxytocin 30 units in 500 mls @ 0 mls/hr 08/26/18 08:33 08/26/18 20:50 Pitocin IV 08/28/18 08:32 0 units/hr .Q0M PRN 0 mls/hr Labor Induction/Augmentation Titration Protocol 0 UNITS/HR Penicillin G Potassium 3 mu/ 106 mls @ 100 mls/hr 08/26/18 08:33 08/26/18 22:50 Dextrose IV 09/05/18 08:32 106 mls/hr Q4H PRN Administration Give until delivery Ropivacaine 100 ml 08/26/18 13:10 08/26/18 22:29 Epidural (L&D) EPI 08/27/18 13:09 100 ml PRN PRN Administration Pain R/T Labor Protocol NPO Date Last Intake of Fluids: 08/26/18 Time Last Intake of Fluids: 23:59 Date Last Intake of Solids: 08/26/18 Time Last Intake of Solids: 06:15 Past Medical History Medical History (spontaneous vaginal delivery) -2014,2017 Exercise / Class Metabolic Activity II 4-5 Yardwork/Stairs/Walk up hill Past Family History Family History Grandfather (Maternal) Diabetes Past Anesthesia History No Family Hx of Anesthesia Complications No previous anesthesia history History of PONV No Hx of Motion Sickness and Other (No previous anesthesia history) Social History Smoking Status: Former smoker Do You Dip or Chew Tobacco: No Hx Alcohol Use: No Hx Substance Use: No Physical Exam Vital Signs Last Vital Signs Temp 36.8 C 08/27/18 00:05 Pulse 77 08/27/18 02:09 Resp 18 08/27/18 00:05 BP 112/59 L 08/27/18 01:40 Pulse Ox 98 08/27/18 02:09 ENMT Mouth: no TMJ abnormality and no TMJ clicking Thyromental Distance: > or= 3.5 Finger Breadths Mallampati Class: II Neck normal visual inspection; neck extension not limited Respiratory Auscultation: lungs clear to auscultation bilaterally Cardiovascular Rate/Rhythm: regular rate and regular rhythm Heart Sounds: no murmur Psychiatric Orientation: alert and oriented x 3 Testing Laboratory Results 08/26/18 08:46
[2018-08-27] MEDS ORDERED: MoRPHine SULFATE PF 1 MG/ML 10 ML AMP/VIAL ONE (03:01)
[2018-08-27] MEDS ORDERED: ePHEDrine sulfate 50 MG/ML AMP ONE (03:15)
[2018-08-27] MEDS ORDERED: MoRPHine SULFATE PF 1 MG/ML 10 ML AMP/VIAL EPI ONE (03:20)
[2018-08-27] MEDS ORDERED: NALOXONE HCL 0.4 MG/1 ML VIAL/CARP IV PRN (03:20)
[2018-08-27] MEDS ORDERED: MEPERIDINE HCL 25 MG/ML CARP IV PRN (03:20)
[2018-08-27] MEDS ORDERED: MoRPHine SULFATE 2 MG/ML CARP IV PRN (03:20)
[2018-08-27] MEDS ORDERED: NALOXONE HCL 0.08 MG in SYRINGE 1.8 ML IV PRN (03:20)
[2018-08-27] MEDS ORDERED: NALBUPHINE HCL INJ 10 MG/ML AMP IV PRN (03:20)
[2018-08-27] MEDS ORDERED: NALOXONE HCL 1 MG in SODIUM CHLORIDE 0.9% 1000ML 1,000 ML IV PRN (03:20)
[2018-08-27] MEDS ORDERED: DiphenhydrAMINE HCL 50 MG/ML VIAL IV PRN ×2 (03:20→21:20)
[2018-08-27] MEDS ORDERED: LACTATED RINGER'S 500 ML IV PRN (03:20)
[2018-08-27] MEDS ORDERED: SODIUM CHLORIDE 0.9% 1000ML 1,000 ML IV SCH (03:30)
[2018-08-27] MEDS ORDERED: NO NARCOTICS OR SEDATIVES SCH (03:30)
[2018-08-27] MEDS ORDERED: HYDROCORTISONE ACETATE 25 MG SUPP PR PRN (04:00)
[2018-08-27] MEDS ORDERED: BENZOCAINE 20% AER SPR 82.5 GM CAN EXT PRN (04:00)
[2018-08-27] MEDS ORDERED: DIPHTHERIA/TETANUS/PERTUSSIS 0.5 ML SYR/VIAL IM ONE (04:00)
[2018-08-27] MEDS ORDERED: SENNA 8.6 MG TAB PO PRN (04:00)
[2018-08-27] MEDS ORDERED: OXYTOCIN 20 UNITS in LACTATED RINGER'S 1,000 ML IV SCH (04:00)
[2018-08-27] MEDS ORDERED: MAGNESIUM HYDROXIDE SUSP 30 ML UDC PO PRN (04:00)
[2018-08-27] MEDS ORDERED: SUPERCREAM 0.870% 15 GM JAR EXT PRN (04:00)
--- NOTE | 2018-08-27 06:11 | Anesthesia Procedure Note ---
Date of Service August 27, 2018 Anesthesia Post Epidural Note Vital Signs Vital Signs: Temp Pulse Resp BP Pulse Ox 08/27/18 06:09 81 115/68 08/27/18 06:08 72 92 08/27/18 06:05 84 97 08/27/18 06:00 64 98 08/27/18 05:55 73 98 08/27/18 05:50 79 98 08/27/18 05:48 69 91 08/27/18 05:45 68 99 08/27/18 05:40 69 100 08/27/18 05:38 36.8 C 69 18 128/65 08/27/18 05:35 75 98 08/27/18 05:32 81 87 L 08/27/18 05:30 60 99 08/27/18 05:25 65 97 08/27/18 05:20 82 98 08/27/18 05:15 66 99 08/27/18 05:10 70 100 08/27/18 05:09 18 08/27/18 05:08 80 137/73 08/27/18 05:05 71 100 08/27/18 05:00 71 99 08/27/18 04:59 78 120/55 L 08/27/18 04:58 84 90 08/27/18 04:55 73 100 08/27/18 04:50 76 18 99 08/27/18 04:48 67 114/62 08/27/18 04:45 85 100 08/27/18 04:40 87 18 100 08/27/18 04:38 77 123/65 08/27/18 04:35 81 100 08/27/18 04:30 72 18 100 08/27/18 04:28 82 122/60 08/27/18 04:25 83 100 08/27/18 04:20 86 16 130/65 99 08/27/18 04:15 89 91 08/27/18 04:10 36.5 C 88 18 100 08/27/18 04:08 70 117/59 L 08/27/18 02:40 90 121/69 08/27/18 02:34 86 99 08/27/18 02:29 81 100 08/27/18 02:24 71 97 08/27/18 02:19 66 98 08/27/18 02:14 65 99 08/27/18 02:09 77 98 08/27/18 02:05 37.2 C 18 08/27/18 02:04 75 98 08/27/18 01:59 71 98 08/27/18 01:54 80 100 08/27/18 01:49 76 100 08/27/18 01:44 80 100 08/27/18 01:40 61 112/59 L 08/27/18 01:39 64 100 08/27/18 01:34 68 100 08/27/18 01:29 67 100 08/27/18 01:24 79 98 08/27/18 01:19 68 98 08/27/18 01:14 60 97 08/27/18 01:09 67 97 08/27/18 01:04 62 97 08/27/18 00:59 71 97 08/27/18 00:54 68 97 08/27/18 00:49 67 97 08/27/18 00:44 67 97 08/27/18 00:41 67 124/64 08/27/18 00:39 67 97 08/27/18 00:34 71 98 08/27/18 00:29 72 97 08/27/18 00:24 73 98 08/27/18 00:19 82 98 08/27/18 00:14 75 99 08/27/18 00:09 75 98 08/27/18 00:05 36.8 C 18 08/27/18 00:04 75 98 08/26/18 23:59 77 99 08/26/18 23:54 80 98 08/26/18 23:49 83 97 08/26/18 23:44 81 98 08/26/18 23:39 83 119/58 L 98 08/26/18 23:34 81 98 08/26/18 23:29 73 97 08/26/18 23:24 71 122/57 L 97 08/26/18 23:19 69 97 08/26/18 23:14 67 97 08/26/18 23:09 71 125/60 98 08/26/18 23:04 78 98 08/26/18 23:03 36.8 C 16 08/26/18 22:59 71 98 08/26/18 22:55 67 126/60 08/26/18 22:54 65 100 08/26/18 22:49 71 100 08/26/18 22:44 85 97 08/26/18 22:39 76 126/60 100 08/26/18 22:34 70 100 08/26/18 22:29 67 100 08/26/18 22:24 69 118/55 L 100 08/26/18 22:19 66 100 08/26/18 22:14 68 100 08/26/18 22:09 105 H 120/62 96 08/26/18 22:04 86 99 08/26/18 21:59 77 98 08/26/18 21:54 88 131/66 99 08/26/18 21:49 70 98 08/26/18 21:44 77 97 08/26/18 21:39 74 130/65 98 08/26/18 21:34 79 99 08/26/18 21:29 76 99 08/26/18 21:24 76 135/72 99 08/26/18 21:19 69 99 08/26/18 21:14 83 100 08/26/18 21:10 36.8 C 08/26/18 21:09 78 132/67 100 08/26/18 21:08 97 H 92 08/26/18 21:04 81 100 08/26/18 20:59 74 100 08/26/18 20:55 75 126/62 08/26/18 20:54 77 100 08/26/18 20:52 83 92 08/26/18 20:49 73 100 08/26/18 20:44 77 100 08/26/18 20:39 75 115/56 L 100 08/26/18 20:35 36.8 C 08/26/18 20:34 72 99 08/26/18 20:29 63 98 08/26/18 20:24 66 124/58 L 99 08/26/18 20:19 73 99 08/26/18 20:14 89 100 08/26/18 20:09 82 116/63 99 08/26/18 20:04 71 99 08/26/18 19:59 87 99 08/26/18 19:56 64 107/57 L 08/26/18 19:54 80 99 08/26/18 19:49 82 99 08/26/18 19:45 36.9 C 90 18 163/87 H 08/26/18 19:44 70 100 08/26/18 19:39 77 115/55 L 100 08/26/18 19:34 92 H 100 06/05/19 19:29 67 100 06/05/19 19:24 92 H 119/62 100 06/05/19 19:19 65 100 06/05/19 19:14 85 99 06/05/19 19:09 67 118/56 L 100 06/05/19 19:04 70 100 06/05/19 18:59 63 100 06/05/19 18:54 71 120/56 L 100 06/05 18:49 68 100 06/05/19 18:44 64 100 06/05/19 18:39 73 129/57 L 100 06/05 18:34 70 100 06/05/19 18:29 72 100 06/05/19 18:25 69 130/62 06/05/19 18:24 80 100 06/05/19 18:21 72 91 06/05/ 18:19 67 100 05 18:14 75 100 06/05/ 18:09 71 127/70 100 0605 18:04 63 99 0605 18:00 37.0 C 18 08/26/18 17:59 67 100 06/05/19 17:54 61 128/61 99 /05/ 17:49 68 99 05/19 17:44 60 99 06/05/19 17:39 62 127/60 100 /05/ 17:34 61 99 06/05/ 17:29 73 100 0519 17:24 60 100 06/05/19 17:19 62 100 06/05/19 17:14 67 100 06/05 17:09 65 130/64 100 0605 17:04 79 100 06/05/19 16:59 64 100 06/05/19 16:54 60 126/58 L 100 /0519 16:49 62 100 06/05/19 16:44 62 100 06/05/19 16:39 64 117/55 L 100 0519 16:34 69 100 06/05/19 16:33 75 92 /05/19 16:29 65 100 /05/19 16:24 63 135/71 100 06/05/19 16:19 63 99 06/05/19 16:14 60 98 06/05/19 16:09 60 120/66 100 06/05/19 16:04 58 L 100 08/26/18 15:59 70 100 08/26/18 15:55 65 124/67 08/26/18 15:54 67 100 08/26/18 15:49 71 99 08/26/18 15:44 59 L 100 08/26/18 15:39 59 L 114/55 L 100 08/26/18 15:34 59 L 99 08/26/18 15:29 59 L 99 08/26/18 15:24 57 L 100 08/26/18 15:19 56 L 100 08/26/18 15:14 61 99 08/26/18 15:09 36.3 C L 62 18 116/57 L 100 08/26/18 15:04 67 100 08/26/18 14:59 56 L 99 08/26/18 14:54 56 L 114/59 L 100 08/26/18 14:49 61 100 08/26/18 14:44 66 100 08/26/18 14:39 58 L 111/55 L 99 08/26/18 14:34 58 L 100 08/26/18 14:29 58 L 99 08/26/18 14:24 59 L 117/56 L 100 08/26/18 14:19 61 100 08/26/18 14:14 63 100 08/26/18 14:09 71 100 08/26/18 14:04 61 100 08/26/18 13:59 60 99 08/26/18 13:54 66 100 08/26/18 13:53 59 L 118/59 L 08/26/18 13:51 58 L 121/61 08/26/18 13:49 57 L 120/61 100 08/26/18 13:47 59 L 120/60 08/26/18 13:45 58 L 121/62 08/26/18 13:44 61 98 08/26/18 13:43 59 L 121/60 08/26/18 13:42 18 08/26/18 13:41 60 120/57 L 08/26/18 13:39 59 L 120/56 L 100 08/26/18 13:37 61 121/58 L 08/26/18 13:35 61 125/65 08/26/18 13:34 61 100 08/26/18 13:33 82 120/68 08/26/18 13:31 61 121/60 06/05/19 13:30 16 08/26/18 13:29 68 125/62 100 08/26/18 13:27 60 125/63 08/26/18 13:25 63 122/65 08/26/18 13:24 64 100 08/26/18 13:23 64 126/66 08/26/18 13:21 62 129/65 08/26/18 13:19 66 125/61 100 08/26/18 13:17 73 122/60 08/26/18 13:15 69 124/57 L 08/26/18 13:14 65 100 08/26/18 13:13 65 123/59 L 08/26/18 13:11 65 118/58 L 08/26/18 13:09 75 16 120/59 L 100 08/26/18 13:06 77 137/56 L 08/26/18 13:04 71 121/59 L 100 08/26/18 12:59 79 100 08/26/18 12:54 82 100 08/26/18 12:49 86 100 08/26/18 12:44 75 100 08/26/18 12:39 71 100 08/26/18 12:37 74 20 167/81 H 08/26/18 12:06 62 133/69 08/26/18 11:36 67 20 136/75 08/26/18 11:12 71 20 138/86 08/26/18 10:36 64 18 128/64 08/26/18 10:02 67 20 141/71 H 08/26/18 09:58 72 179/93 H 08/26/18 08:39 76 127/60 08/26/18 08:23 71 143/80 H 08/26/18 08:13 36.8 C 90 20 169/104 H 08/26/18 08:07 36.8 C 90 20 169/104 H Notes Mental Status: alert / awake / arousable Patient Amnestic to Procedure: No Nausea / Vomiting: adequately controlled Pain: adequately controlled Airway Patency, RR, SpO2: stable & adequate BP & HR: stable & adequate Hydration State: stable & adequate Anesthetic Complications: no major complications apparent Epidural: Removed without complications and With tip intact Notes: Patient doing well. No complaints. Epidural site looks clean and dry without signs of erythema or edema. VSS
[2018-08-27] MEDS: KETOROLAC 30 MG/ML VIAL IV PRN ×3 (08:48→21:08)
[2018-08-27] MEDS: SIMETHICONE 80 MG CHEW PO SCH ×4 (09:09→21:08)
[2018-08-27] MEDS: DOCUSATE SODIUM 100 MG CAP PO SCH ×2 (09:09→21:08)
[2018-08-27] MEDS: FERROUS SULFATE 325 MG TAB PO SCH (10:51)
[2018-08-27] MEDS: PRENATAL VITAMIN 1 TAB PO SCH (10:51)
[2018-08-27] MEDS ORDERED: LACTATED RINGER'S 1,000 ML IV SCH (12:30)
[2018-08-27] MEDS ORDERED: DC INTRASPINAL MORPHINE SCH (21:20)
[2018-08-27] MEDS ORDERED: KETOROLAC 30 MG/ML VIAL IV PRN (21:20)
[2018-08-27] MEDS ORDERED: PROMETHAZINE HCL 25 MG in SODIUM CHLORIDE 0.9% 50 ML IV PRN (21:20)
[2018-08-28] MEDS: IBUPROFEN 600 MG TAB PO PRN ×4 (03:44→18:50)
[2018-08-28] MEDS: OXYCODONE/ACETAMINOPHEN 5mg/325mg TAB PO PRN ×4 (03:46→18:49)
--- NOTE | 2018-08-28 06:33 | Obstetrical Progress Note ---
Date of Service <Mario Houston MD - Last Filed: 08/28/18 06:33> August 28, 2018 Assessment & Plan <Mario Houston MD - Last Filed: 08/28/18 06:33> (1) 40 weeks gestation of : (2) delivery delivered: Danielle is a 33yo who presented at 40+2 for scheduled induction of labor and is now s/p c/s for failure to descent POD#1 - GBS positive, Blood type O+, RI, VDRL negative - Feels well today. Eating well, voiding well, ambulating well. - No flatus today. Continue to encourage ambulation. - Pain well controlled with ibuprofen 600mg Q4H PRN + percocet. - well without difficulty - Routine postop care - After discharge will have [address] Campbell. Subjective <Mario Houston MD - Last Filed: 08/28/18 06:33> Ambulation: ambulating normally Voiding: no voiding problems Passing Gas:: No Diet Tolerance:: regular diet Lochia:: Small Feeding Type:: breast feeding Current Pain Level(1-10): 0 Review of Systems Denies fever, chills, sweats Denies shortness of breath, difficulty breathing, chest pain, palpitations, chest pressure. Denies breast pain. Denies dysuria. Denies headache. Physical Exam <Mario Houston MD - Last Filed: 08/28/18 06:33> Vital Signs (Past 24 Hours) Last Vital Signs Temp 36.7 C 08/28/18 05:05 Pulse 86 08/28/18 05:05 Resp 18 08/28/18 05:05 BP 130/80 08/28/18 05:05 Pulse Ox 98 08/27/18 21:19 General: Alert, oriented. No acute distress. Cardiac: Regular rate and rhythm, no murmurs/rubs/gallops. Respiratory: Clear to auscultation anterior and posteriorly, no wheezes/rales/rhonchi. No increased work of breathing. Symmetrical chest rise. No respiratory distress. Abdomen: Soft, nontender, nondistended. Bowel sounds present. Surgical incision intact, well healing, without erythema/dihiscence/discharge/warmth Uterus: Uterine fundus firm, palpable at umbilicus. Lower Extremities: No lower extremity edema or swelling. No deep calf pain. Nora's negative bilaterally. <Jessica Crawley MD - Last Filed: 08/28/18 07:28> Co-Signing Physician Notes I have reviewed the resident's note and examined the patient myself, and agree with the note above. Resident Activity Tracking <Mario Houston MD - Last Filed: 08/28/18 06:33> Resident Involvement: Resident Care Provided Care Provided: Adult Hospital Medicine
[2018-08-28 07:27] LABS: Basophils # (auto) 0.02 K/uL (0-0.2); Basophils % (auto) 0.2 %; Eosinophils # (auto) 0.09 K/uL (0-0.5); Eosinophils % (auto) 0.8 %; Hematocrit (blood only) 26.6 % (37-47); Immature Granulocytes # (auto) 0.03 K/uL (0.00-0.02); Immature Granulocytes % (auto) 0.3 %; Lymphocytes # (auto) 2.28 K/uL (1.2-3.4); Lymphocytes % (auto) 20.8 %; Mean Corpuscular Hgb Conc 33.8 g/dL (32-36); Mean Corpuscular Volume 74.5 fL (80-100); Mean Platelet Volume 10.1 fL (7.4-10.4); Monocytes % (auto) 4.6 %; Neutrophils # (auto) 8.05 K/uL (1.4-6.5); Neutrophils % (auto) 73.3 %; Platelet Count 189 K/uL (130-400); RDW Coefficient of Variation 15.8 % (11.5-14.5); RDW Standard Deviation 43.4 fL (36.4-46.3); Red Blood Count 3.57 M/uL (4.2-5.4); White Blood Count 10.97 K/uL (4.8-10.8)
[2018-08-28] MEDS: SIMETHICONE 80 MG CHEW PO SCH ×4 (08:21→21:04)
[2018-08-28] MEDS: PRENATAL VITAMIN 1 TAB PO SCH (08:21)
[2018-08-28] MEDS: DOCUSATE SODIUM 100 MG CAP PO SCH ×2 (08:21→21:04)
[2018-08-28] MEDS: FERROUS SULFATE 325 MG TAB PO SCH (08:21)
--- NOTE | 2018-08-28 09:37 | Anesthesiology Progress Note ---
Date of Service August 28, 2018 Anesthesia Post Procedure Vital Signs Vital Signs: Temp Pulse Pulse Resp BP Pulse Ox 08/28/18 08:00 36.4 C L 76 18 115/72 98 08/28/18 05:05 36.7 C 86 18 130/80 08/28/18 00:25 36.9 C 80 18 112/71 08/27/18 21:19 18 98 08/27/18 20:10 36.5 C 89 18 112/73 100 08/27/18 19:15 18 100 08/27/18 18:00 18 99 08/27/18 17:00 20 100 08/27/18 16:00 18 99 08/27/18 15:40 36.8 C 78 18 116/69 99 08/27/18 15:00 18 100 08/27/18 14:00 18 99 08/27/18 13:00 18 99 08/27/18 12:06 20 99 08/27/18 12:00 36.5 C 74 20 104/69 100 08/27/18 11:00 18 99 08/27/18 10:00 18 99 Pain Intensity Lower Abdomen: Pain Intensity: 5 Transfer of Care Handoff Completed per policy Notes Mental Status: alert / awake / arousable Patient Amnestic to Procedure: No Nausea / Vomiting: adequately controlled Pain: adequately controlled Airway Patency, RR, SpO2: stable & adequate BP & HR: stable & adequate Hydration State: stable & adequate Neuraxial Anesthesia: was administered and sensory block resolved Anesthetic Complications: no major complications apparent and Pt Satisfied with anesthetic care Notes: no headache
[2018-08-28] MEDS ORDERED: BISACODYL 5 MG TABEC PO SCH (20:00)
[2018-08-29] MEDS: IBUPROFEN 600 MG TAB PO PRN ×4 (00:05→15:57)
[2018-08-29] MEDS: OXYCODONE/ACETAMINOPHEN 5mg/325mg TAB PO PRN ×4 (00:06→15:56)
[2018-08-29] MEDS ORDERED: BISACODYL 10 MG SUPP PR PRN (04:00)
--- NOTE | 2018-08-29 06:54 | Obstetrical Progress Note ---
Date of Service <Mario Houston MD - Last Filed: 08/29/18 06:54> August 29, 2018 Assessment & Plan <Mario Houston MD - Last Filed: 08/29/18 06:54> (1) delivery delivered: Danielle is a 33yo who presented at 40+2 for scheduled induction of labor and is now s/p c/s for failure to descent POD#2 - GBS positive, Blood type O+, RI, VDRL negative - Feels well today. Eating well, voiding well, ambulating well. - No flatus today. Continue to encourage ambulation. - Pain well controlled with ibuprofen 600mg Q4H PRN + percocet. - well without difficulty - Routine postop care - After discharge will have [address] Campbell. Subjective <Mario Houston MD - Last Filed: 08/29/18 06:54> Ambulation: ambulating normally Voiding: no voiding problems Passing Gas:: Yes Diet Tolerance:: regular diet Lochia:: Small Feeding Type:: breast feeding Current Pain Level(1-10): 6 (with gas pain as well, improved with walking and rx) Review of Systems Denies fever, chills, sweats Denies shortness of breath, difficulty breathing, chest pain, palpitations, chest pressure. Denies breast pain. Denies dysuria. Denies headache. Physical Exam <Mario Houston MD - Last Filed: 08/29/18 06:54> General: Alert, oriented. No acute distress. Cardiac: Regular rate and rhythm, no murmurs/rubs/gallops. Respiratory: Clear to auscultation anterior and posteriorly, no wheezes/rales/rhonchi. No increased work of breathing. Symmetrical chest rise. No respiratory distress. Abdomen: Soft, nontender, nondistended. Bowel sounds present. Surgical incision intact without dehiscence, erythema, bleeding, discharge, warmth, or tenderness. Uterus: Uterine fundus firm, palpable 1-2cm below umbilicus. Lower Extremities: No lower extremity edema or swelling. No deep calf pain. Nora's negative bilaterally. Results & Data <Mario Huoston MD - Last Filed: 08/29/18 06:54> Vital Signs (Past 12 Hours) Vital Signs Temp Pulse Resp BP Pulse Ox 08/29/18 00:10 36.6 C 82 18 130/81 08/28/18 20:25 36.7 C 81 18 124/67 99 <Becca Soria MD, FACOG - Last Filed: 08/29/18 07:30> Co-Signing Physician Notes Resident Physician Supervision Note: I interviewed and examined the patient. Discussed with Dr. Houston and agree with findings and plan as documented in the note. Any exceptions or clarifications are listed here: Doing well. Having some gas pains, encouraged ambulation. Probably d/c in am. Documented By: Becca Soria MD, FACOG Resident Activity Tracking <Mario Houston MD - Last Filed: 08/29/18 06:54> Resident Involvement: Resident Care Provided Care Provided: Adult Hospital Medicine
[2018-08-29 07:06] LABS: Hematocrit (blood only) 27.6 % (37-47); Hemoglobin 9.1 g/dL (12.0-16.0)
[2018-08-29] MEDS: FERROUS SULFATE 325 MG TAB PO SCH (08:17)
[2018-08-29] MEDS: DOCUSATE SODIUM 100 MG CAP PO SCH ×2 (08:17→19:28)
[2018-08-29] MEDS: SIMETHICONE 80 MG CHEW PO SCH ×3 (08:17→19:28)
[2018-08-29] MEDS: PRENATAL VITAMIN 1 TAB PO SCH (08:17)
--- NOTE | 2018-09-02 12:55 | Discharge Summary ---
ADMITTING PHYSICIAN: Dr. uJanito Campbell. OPERATING PHYSICIAN: Dr. Juanito Campbell. PROCEDURES WHILE ADMITTED: Primary low transverse section. HOSPITAL COURSE: The patient was admitted on 08/26/2018 for elective induction of labor at term. The patient's labor course is as noted per operative report. The patient underwent a primary low transverse section for failure to progress and nonreassuring heart tones with inability to augment as detailed per operative report. Postoperatively, the patient recovered well without any complications. She was discharged home on postoperative day 2. The patient was provided with both written and verbal postoperative and precautions with scheduled followup at 6 weeks or as needed if issues arise.
--- NOTE | 2018-09-02 13:08 | Operative Report ---
DATE OF OPERATION: 08/27/2018 PROCEDURE PERFORMED: Primary low transverse section. SURGEON: Juanito Campbell MD PREOPERATIVE DIAGNOSES: 1. Single intrauterine at term. 2. Elective induction of labor. 3. Nonreassuring heart tracing with inability to augment. 4. Arrest of dilation with inability to augment secondary to nonreassuring tracing. POSTOPERATIVE DIAGNOSES: 1. Single intrauterine at term. 2. Elective induction of labor. 3. Nonreassuring heart tracing with inability to augment. 4. Arrest of dilation with inability to augment secondary to nonreassuring tracing. 5. Status post delivery. ESTIMATED BLOOD LOSS: 700 mL. DRAINS: Nicholas. FLUIDS: Continuous lactated Ringer. URINE OUTPUT: As noted per EMR. COMPLICATIONS: None. FINDINGS: There is noted to be a normal-appearing uterus, ovaries and fallopian tubes bilaterally. The head of the was not engaged in the pelvis at time of delivery. INDICATIONS: Ms. Betancur is a 33-year-old G3, P2-0-0-2 admitted for elective induction of labor at 40+ weeks' gestational age. On initial evaluation, the patient was noted to be 3 cm dilated with still thick and high cervix. Nicholas balloon had been placed the night before and had fallen out prior to admission. The patient was started on oxytocin per regular protocol, was given penicillin for GBS positive status. Upon reevaluation, as the patient was complete on penicillin, the patient was noted to be 4 cm dilated, 50% effaced, -3 station. Patient underwent artificial rupture of membranes and was continued on oxytocin per regular protocol. The patient then received an epidural for anesthesia. The patient was then evaluated 3-4 hours later and at that time was noted to be 5 cm dilated, 50% to 60% effaced, -3 station. There were noted to be variable decels and category 2 tracing at that time. Oxytocin was discontinued with recovery and resolution of the variable decels. At approximately 1 hour after discontinuation, the oxytocin was restarted and the patient was reevaluated approximately 2 hours after reinitiation of oxytocin. At that time, she was noted to be 6 cm dilated, 60% effaced, -2 to -3 station. Oxytocin was also discontinued just prior to exam for recurrent variable decels. There was noted to be little to no progression of station. Oxytocin was again reinitiated and then discontinued. The patient was rechecked several hours later and found to be 7 cm dilated, 60% effaced, -2 to -3 station with little to no progression in station since the time of start of induction. The tracing was noted to be progressively worsening and was noted to have both variable and late decels. They were persistent despite discontinuation of oxytocin without presence of contractions. The findings were discussed with Danielle and her . We discussed that the patient was stalled at 7 cm for greater than 4-6 hours with no progression in station and was having a category 2 tracing with both late and persistent variables despite not having any contractions at that time. We discussed the oxytocin could not be safely restarted with the tracing as it was noted and the recommendation for a primary section was discussed. The patient agreed with proceeding with the section. The risks of the procedure were discussed in detail and all questions answered to the patient and her 's satisfaction. DESCRIPTION OF PROCEDURE: The patient was taken to the operating room after consents were ensured. Upon presentation was properly identified. The epidural anesthesia was bolused to achieve adequate surgical levels. The patient was then prepped and draped in the normal sterile fashion. A preprocedural timeout was performed. A Pfannenstiel incision was then made with a knife. This was carried down to underlying fascia with the Bovie and blunt dissection. The fascia was nicked at the midline with the knife. The fascia was then extended laterally in each direction with pickups and Kaiser scissors. The superior aspect of the fascia was grasped with Wilner x2 and elevated off the underlying rectus muscle using blunt dissection. The inferior aspect of the fascia was then grasped with Wilner x2 and elevated off the underlying rectus muscles using blunt dissection. The midline was then entered bluntly and placed on stretch to provide adequate room for delivery. Bladder blade was inserted. The uterus was noted to be midline. A bladder flap was created in the normal fashion. A low transverse uterine incision was then made. The uterine cavity was then entered bluntly and the incision was extended bluntly to provide adequate room for delivery. The head of the was noted to be high and not engaged in the pelvis and it seemed to be asynclitic in presentation. Head of the was delivered through the hysterotomy without difficulty and body and shoulders quickly followed. The was noticed to be vigorous soon after delivery and a 1-minute delayed cord clamping was initiated. The cord was then double clamped and cut. The was taken over to the waiting nursery staff. Cord segment and cord blood were then obtained. Attention was then turned to deliver the placenta and it was delivered intact with 3-vessel cord, gentle cord traction and fundal massage. Uterus was exteriorized and wrapped in a wet lap. Several passes were made inside of the uterus to remove any remaining membranes and debris. The hysterotomy was then closed with 0 Vicryl in continuous running locked suture. A second imbricating layer of 0 Vicryl was then performed. The uterus was noted to be hemostatic. The posterior cul-de-sac was cleaned of clots and debris and the uterus was returned to the maternal abdomen. Both right and left pericolic gutters were cleaned of clots and debris. The space of Retzius was cleaned of clots and debris and hysterotomy was noted to have continued hemostasis. The fascial muscle and subcutaneous layers were inspected and noted to be hemostatic. The fascia was reapproximated with 0 Vicryl in continuous running stitch. The subcutaneous layers were reapproximated with 2-0 plain with a continuous running stitch. The skin was reapproximated with 3-0 Vicryl on a Bill needle. Needle, sponge, and instrument counts were correct at the completion of the case. Dermabond was placed over the incision to help reapproximate the dermal layers. Both mother and were stable in the immediate post-delivery period. I attest to the content of the Intraoperative Record and any orders documented therein. Any exception s are noted below.
== END 2018-08-29 20:25 | disposition home or self-care (01) | DRG 788 ==
LOC: 4S1 07:57 → 4S2 08-27 06:58